=== PATIENT | female | born 1945 | race Caucasian/White ===

== ENCOUNTER 2016-10-24 20:54 | Emergency (ER) | payer MEDICARE, OTHER ==
[~2016-10-24] VITALS: Ht 152.4 cm; Wt 55.5 kg
[~2016-10-24 20:54] MED LIST: ACYC200C PO; DOXY100C PO; ZIPR20CA2 PO
[2016-10-24] MEDS ORDERED: LORA2TAB2 PO (21:02)
[2016-10-24] MEDS ORDERED: ZOLP10 PO (21:02)
[2016-10-24] MEDS ORDERED: HALO5 PO (21:02)
[2016-10-25 02:26] VITALS: BP 123/68
== END 2016-10-25 02:49 | disposition home or self-care (01) ==
LOC: EMS 20:56
DX: S30.0XXA Contusion of lower back and pelvis, initial encounter (principal); E03.9 Hypothyroidism, unspecified; F20.9 Schizophrenia, unspecified; F17.210 Nicotine dependence, cigarettes, uncomplicated; Z02.89 Encounter for other administrative examinations; Z88.0 Allergy status to penicillin; Z88.5 Allergy status to narcotic agent; Z88.2 Allergy status to sulfonamides; W01.0XXA Fall on same level from slipping, tripping and stumbling without subsequent striking against object, initial encounter; Y93.89 Activity, other specified; Y92.89 Other specified places as the place of occurrence of the external cause; Y99.8 Other external cause status
CPT/HCPCS: 99283